=== PATIENT | female | born 1955 | race Caucasian/White ===

== ENCOUNTER 2021-12-10 09:53 | Day surgery (SDC) | payer OTHER ==
[2021-12-10] MEDS: Sodium Chloride 0.9% 1,000 ML IV SCH (10:20)
[2021-12-10] MEDS ORDERED: Propofol 200 MG/20 ML SDV ONE (11:10)
[2021-12-10] MEDS ORDERED: fentaNYL 100 MCG/2 ML SDV ONE (11:10)
[2021-12-10] MEDS ORDERED: Midazolam 1 MG/ML 2 ML SDV ONE (11:10)
== END 2021-12-10 13:34 | disposition home or self-care (01) ==
LOC: JP.SDS 09:53
PROVIDERS: ATTEND Surgery
DX: Z12.11 Encounter for screening for malignant neoplasm of colon (principal); E66.9 Obesity, unspecified; Z68.29 Body mass index [BMI] 29.0-29.9, adult
CPT/HCPCS: 45378; J2250; J2704; J3010; J7030